=== PATIENT | female | born 1980 | race Caucasian/White ===

== ENCOUNTER → 2016-03-22 | Outpatient (CLI) | payer OTHER ==
--- NOTE | 2016-03-22 12:01 | US ---
CORRECTED ORDERING PHYSICIAN Ultrasound Pelvis Complete (Transabdominal and Endovaginal) Including Duplex/ Doppler Imaging History: [place] IUD placement. Technique: Transabdominal and endovaginal ultrasound images were obtained. Endovaginal images obtained for better evaluation of the uterine myometrium and adnexa. Duplex/Doppler imaging of adnexa. Findings: Uterus measures 9 x 5 x 4 cm. IUD appears in good position centrally within the endometrial canal near the fundus region. Endometrial thickness is 6 mm. No definite uterine leiomyomata. Right ovary measures 2.9 x 2.6 x 1.3 cm. Left ovary measures 5.2 x 4 x 3.1 cm. 2 left ovarian simple cyst measuring up to 3 x 2.9 x 2.7 cm. Smaller cyst or follicle measures 1.6 x 1.6 x 1.5 cm. Minimal posterior cul-de-sac free fluid in the pelvis. Color Doppler flow to both ovaries without torsion. Impression: 1. IUD appears in good position. 2. Left ovarian simple cyst measuring 3 x 2.9 x 2.7 cm. MTDD
== END ==
LOC: FIMAGING 11:01
PROVIDERS: ATTEND Obstetrics & Gynecology
DX: Z30.431 Encounter for routine checking of intrauterine contraceptive device (principal); N83.202 Unspecified ovarian cyst, left side

== ENCOUNTER → 2016-10-04 | Outpatient (CLI) | payer OTHER | LOC: BMCIMAGING 10:32 | PROVIDERS: ATTEND Internal Medicine | DX: R61 Generalized hyperhidrosis (principal) ==

== ENCOUNTER → 2016-12-20 | Outpatient (CLI) | payer OTHER | LOC: BMCIMAGING 09:33 | PROVIDERS: ATTEND Advanced Practice Midwife | DX: Z30.431 Encounter for routine checking of intrauterine contraceptive device (principal); N83.01 Follicular cyst of right ovary; N83.02 Follicular cyst of left ovary; R93.8 Abnormal findings on diagnostic imaging of other specified body structures ==

== ENCOUNTER → 2018-03-20 | Outpatient (CLI) | payer OTHER | LOC: BMCIMAGING 08:29 | PROVIDERS: ATTEND Obstetrics & Gynecology | DX: N93.9 Abnormal uterine and vaginal bleeding, unspecified (principal); N83.201 Unspecified ovarian cyst, right side; N83.202 Unspecified ovarian cyst, left side; R93.89 Abnormal findings on diagnostic imaging of other specified body structures ==

== ENCOUNTER → 2018-05-21 | Outpatient (CLI) | payer OTHER | LOC: BMCIMAGING 09:00 | PROVIDERS: ATTEND Obstetrics & Gynecology | DX: N93.9 Abnormal uterine and vaginal bleeding, unspecified (principal); N83.201 Unspecified ovarian cyst, right side; N83.202 Unspecified ovarian cyst, left side ==